=== PATIENT | male | born 1945 | race Caucasian/White ===

== ENCOUNTER 2016-07-01 23:04 | Inpatient (IN) ==
[2016-07-01] MEDS ORDERED: SODIUM CHLORIDE 0.9% 1,000 ML IV STA (23:36)
[2016-07-01] MEDS ORDERED: HYDROmorphone 2 MG/1 ML VIAL IV STA (23:37)
[2016-07-01] MEDS ORDERED: HYDROmorphone 2 MG/1 ML VIAL ONE (23:46)
[2016-07-02 00:03] LABS: Basophils # 0.1 10*3/uL (0.0-0.2); Basophils % 0.4 % (0.0-0.8); Eosinophils # 0.1 10*3/uL (0.0-0.87); Eosinophils % 0.7 % (0.00-10.9); Hematocrit 30.2 VOL% (42.0-52.0); Hemoglobin 9.9 GM/DL (14.0-18.0); Immature Granulocytes % 0.9 %; Immature Granulocytes Absolute 0.12 #; Lymphocytes % 7.6 % (21.2-54.2); Mean Corpuscular HGB Conc 32.8 GM/DL (32-36); Mean Corpuscular Hemoglobin 30 PG (27-34); Mean Corpuscular Volume 90.4 FL (87-102); Mean Platelet Volume 9.1 FL (9.6-12.0); Monocytes # 1.3 10*3/uL (0.11-0.8); Monocytes % 9.2 % (1.7-12.7); Neutrophils # 11.1 10*3/uL (1.4-7.4); Neutrophils % 81.2 % (38.7-73.9); Platelet Count 305 T/CUMM (130-400); Red Blood Count 3.34 MC/CUMM (3.8-5.5); Red Cell Distribution Width 13.7 % (9.3-17.3); White Blood Count 13.6 T/CUMM (4-12)
[2016-07-02 00:20] LABS: PT Patient Result 10.9 SECS
[2016-07-02 01:04] LABS: Albumin 3.5 G/DL (3.4-5.0); Bilirubin,Total 0.4 MG/DL (0.2-1.0); Calcium 9.7 MG/DL (8.5-10.1); Osmolality,Calculated 298.1 MOS/KG (273-304); Potassium 4.5 MMOL/L (3.5-5.1); Total Protein 7.1 G/DL (6.4-8.3)
[2016-07-02 01:20] LABS: Sedimentation Rate-Westergren 119 MM/HR (0-20)
[2016-07-02] MEDS ORDERED: ACETAMINOPHEN 500 MG TABLET PO STA ×2 (01:30→01:33)
[2016-07-02] MEDS ORDERED: ACETAMINOPHEN 500 MG TABLET ONE (01:31)
[2016-07-02 01:32] LABS: Apearance,Urine Slightly Hazy (Clear); Bilirubin,Urine Negative (Negative); Blood, Urine Small mg/dL (Negative); Glucose,Urine (UA) Negative (Negative); Granular Casts,Urine 3 /LPF (0-1); Hyaline Casts,Urine 1 /LPF (0-3); Ketones,Urine Negative (Negative); Mucus,Urine Occasional /LPF (Occasional); Nitrite,Urine Negative (Negative); Protein,Urine 30 MG/DL; RBC,Urine 1 /HPF (0-4); Squamous Epithelial Cell,Urine Occasional /HPF (0-10); Urine Color Yellow (Yellow); Urine Specific Gravity 1.012 (1.001-1.035); Urine Urobilinogen < 2.0 EU/DL (0.2-1.0); WBC,Urine 16 /HPF (0-6)
[2016-07-02] MEDS ORDERED: ACETAMINOPHEN 325 MG TABLET PO PRN (01:59)
[2016-07-02] MEDS ORDERED: ZALEPLON 5 MG CAPSULE PO PRN (01:59)
[2016-07-02] MEDS ORDERED: ONDANSETRON 4 MG/2 ML VIAL IV PRN (01:59)
[2016-07-02] MEDS ORDERED: DEXTROSE 50% 25 GM/50 ML VIAL IV PRN (02:25)
[2016-07-02] MEDS ORDERED: GLUCAGON 1 MG VIAL IM PRN (02:25)
[2016-07-02] MEDS ORDERED: HYDROmorphone 2 MG/1 ML VIAL IV PRN ×2 (02:27→14:59)
--- NOTE | 2016-07-02 02:34 | Hospitalist History & Physical ---
Assessment and Plan (1) History of gout Status: Acute Current Visit: Yes (2) Increase in transaminases Status: Acute Current Visit: Yes (3) Fever of unknown origin Status: Acute Current Visit: Yes (4) Hypertension Status: Chronic Current Visit: No (5) Dyslipidemia Status: Chronic Current Visit: No (6) Diabetes Status: Chronic Assessment and plan: Our plan for this patient will be admission to our service. He has a fever of unknown origin we will place him on broad coverage antibiotics. He is creatinine is slightly bumped from previous values currently it is 5.1 and previously it was 4.6. If it increases much more will need to get Dr. Bridges involved. Cultures have been drawn urine has been cultured.. X-rays will be performed of his ankle and bilateral shoulders. Narcotics will be provided for pain relief. Will check uric acid level. Reevaluate patient in the morning and change plans as needed Current Visit: No (7) CKD (chronic kidney disease) stage 4, GFR 15-29 ml/min Status: Chronic Current Visit: No (8) CAD (coronary artery disease) Status: Chronic Current Visit: No History of Present Illness Chief complaint: Joint pain and fever History of present illness: Mr. Shaw is a 71 year old male with past medical history significant for chronic kidney disease basal cell cancer of the ear, prostate problems, diabetes , and coronary artery disease who had a left heart catheter stents placed on May 28. He has been doing okay since then. He had some pain in his foot and he went to an outside hospital and told it was a gout flare. He reports he previously been on allopurinol in the past. He was transferred over to colchicine but it was stopped secondary to his chronic kidney disease. He sees Dr. Bridges with nephrology. He reports he has been febrile. He has had pains in his ankles and his bilateral shoulders. Says the pain is very sharp. Patient also request reports of a cough. His been nonproductive. He has no pain with urination. He has been on oral chemo for about a month and a half. I was consulted to admit him. He is febrile and a little tachycardic. Home Medications Medication Instructions Recorded Confirmed Type Aspirin [Ecotrin] 81 mg PO DAILY 11/15/14 07/01/16 History Diltiazem Cd Cap [Cardizem CD] 120 mg PO DAILY 11/15/14 07/01/16 History Gabapentin Cap/Tab [Neurontin 600 mg PO BID 11/15/14 07/01/16 History Cap/Tab] Magnesium Oxide 400 mg PO BEDTIME 11/15/14 07/01/16 History Metoprolol Tartrate 12.5 mg PO BID 11/15/14 07/01/16 History Pantoprazole Tab [Protonix Tab] 40 mg PO DAILY 11/15/14 07/01/16 History Furosemide 40 mg PO DAILY 01/04/16 07/01/16 History Insulin Detemir [Levemir] 30 unit SUBCUT AC SUPPER 01/04/16 07/01/16 History glipiZIDE [Glipizide] 5 mg PO DAILY 01/04/16 07/01/16 History Vismodegib [Erivedge] 150 mg PO DAILY 05/28/16 07/01/16 History Clopidogrel [Plavix] 75 mg PO DAILY 07/01/16 07/01/16 History Pravastatin Sodium 20 mg PO BEDTIME 07/01/16 07/01/16 History Allergies Allergy/AdvReac Type Severity Reaction Status Date / Time No Known Allergies Allergy Verified 07/01/16 23:11 Medical,Surgical,& Family Hx - Medical History Cardio: History of: Cardiac Dysrhythmia (A-Fib), Hypertension, 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 Bridges-Keeping a watch on Elevated Creat) Genitourinary: History of: Prostate Problems (BPH) Gastrointestinal: No history of: Polyps Musculoskeletal: History of: Musculoskeletal Problems (arthritis) Other: History of: Cancer (Skin), Skin Problems (Hx Skin Grafts) No history of: Anesthesia Reactions - Surgical History Neurologic Surgeries: Surgical HX of: Cerebral Hemorrhage (Feb 2012) HEENT Surgeries: Surgical HX of: Eye Surgery (COS/COD) Patient denies: Tonsilectomy & Adenoidectomy Abdominal Surgeries: Surgical HX of: Cholecystectomy Patient denies: Colonoscopy Reproductive Surgeries: Surgical HX of;: Genitourinary Surgery (Microwave Prostate; 01/13/16 Sched for Cysto with Laser Ablation of Prostat) - Family History Family History: Reports;: Family Diabetes, Family Heart Disease - Social History Smoking Status: Never smoker Frequency of Alcohol Use: None Type of Drug Use: None 12 point system: reviewed and no additional remarkable complaints except as stated Exam - Constitutional Vitals: - General General appearance: alert, in no apparent distress - Head Head exam: Present: atraumatic, normocephalic - Eye Eye exam: Present: PERRL, EOMI - ENT ENT exam: Present: mucous membranes moist. Absent: mucous membranes dry - Neck Neck exam: Present: full ROM. Absent: tenderness - Chest Chest inspection: Present: symmetric chest wall rise. Absent: tenderness - Respiratory Respiratory exam: Present: normal lung sounds bilaterally. Absent: respiratory distress - Cardiovascular Cardiovascular exam: Present: normal rhythm, tachycardia, normal heart sounds - Abdominal Exam Abdominal exam: Present: soft. Absent: tenderness - Extremities Exam Extremities exam: Present: full ROM, tenderness noted on physical exam of the left ankle bilateral shoulders and left elbow. - Back Exam Back exam: Present: full ROM. Absent: tenderness - Neurological Exam Neurological exam: Present: alert, oriented X3, CN II-XII intact. Absent: motor sensory deficit - Psychiatric Psychiatric exam: Present: normal affect, normal mood - Skin Skin exam: Present: warm, dry General appearance: over weight Results - Labs CBC & BMP: 07/01/16 23:49 07/01/16 23:49
[2016-07-02] MEDS: ENOXAPARIN 30 MG/0.3 ML SYRINGE SUBCUT SCH (03:15)
--- NOTE | 2016-07-02 03:30 | Emergency Department Note ---
I, Nathalia Newsome, am scribing for, and in the presence of, Kaylah Conway MD 23:46. IMan Leanne, MD, personally performed the services described in this documentation, ascribed by Nathalia Newsome in my presence, and it is both accurate and complete . Arrival - Arrival Chief Complaint: Extremity Problem Stated Complaint: upper and lower ext pain ED Nursing Triage Note: Patient to room via ems. Patient states that he is hurting all over. Patient states it is worse if you touch him. Patient had fentyl 100mcg per ems. Patient was told he had gout in his left foot last week. Patient is on oral chemo at this time. Mode of Arrival: Stretcher Limitations: No Limitations Source: Patient Time Seen by Provider: 07/01/16 23:36 - History of Present Illness HPI Narrative: Pt is a 71 y/o male that came to the ED via EMS with c/o hurting all over that has been going on for 3 or 4 days but is worse tonight. Pt states he has pain in his left ankle, end of his right greater toe, bilateral shoulders, bilateral knees, and left elbow that are all tender to touch and sore. Pt reports another hospital 2 nights ago told him his sxs were gout but he denies being previously diagnosed with gout. He states he has had this pain before in all the same places but denies it ever being this bad. Pt reports he has been taking Rx pain medication for sxs. Pt states he had a NM and stents placed 2 or 4 weeks ago. Pt has associated sxs of fever in his feet but denies SOB, CP, or CALLE. Pt has a PMHx of IDDM. No other complaints/pain in ED. Allergies/Adverse Reactions: Allergies Allergy/AdvReac Type Severity Reaction Status Date / Time No Known Allergies Allergy Verified 07/01/16 23:11 Home Medications: Home Medications Medication Instructions Recorded Confirmed Type Aspirin [Ecotrin] 81 mg PO DAILY 11/15/14 07/01/16 History Diltiazem Cd Cap [Cardizem CD] 120 mg PO DAILY 11/15/14 07/01/16 History Gabapentin Cap/Tab [Neurontin 600 mg PO BID 11/15/14 07/01/16 History Cap/Tab] Magnesium Oxide 400 mg PO BEDTIME 11/15/14 07/01/16 History Metoprolol Tartrate 12.5 mg PO BID 11/15/14 07/01/16 History Pantoprazole Tab [Protonix Tab] 40 mg PO DAILY 11/15/14 07/01/16 History Furosemide 40 mg PO DAILY 01/04/16 07/01/16 History Insulin Detemir [Levemir] 30 unit SUBCUT AC SUPPER 01/04/16 07/01/16 History glipiZIDE [Glipizide] 5 mg PO DAILY 01/04/16 07/01/16 History Vismodegib [Erivedge] 150 mg PO DAILY 05/28/16 07/01/16 History Clopidogrel [Plavix] 75 mg PO DAILY 07/01/16 07/01/16 History Pravastatin Sodium 20 mg PO BEDTIME 07/01/16 07/01/16 History Review of System - Review of System 12 point system: reviewed and no additional remarkable complaints except as stated - Review of System Constitutional: Absent: chills, fever Respiratory: Absent: cough Cardiovascular: Absent: chest pain Gastrointestinal: Absent: abdominal pain, nausea, vomiting Musculoskeletal: Present: other (pain in bilateral shoulders, left elbow, bilateral knees, left ankle, and the end of the right great toe with fever in his feet) Skin: Absent: rash Neurological: Absent: headache Psychiatric: Absent: anxiety Medical,Surgical,& Family Hx - Medical History Cardio: History of: Cardiac Dysrhythmia (A-Fib), Hypertension, 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 Bridges-Keeping a watch on Elevated Creat) Genitourinary: History of: Prostate Problems (BPH) Gastrointestinal: No history of: Polyps Musculoskeletal: History of: Musculoskeletal Problems (arthritis) Other: History of: Cancer (Skin), Skin Problems (Hx Skin Grafts) No history of: Anesthesia Reactions - Surgical History Neurologic Surgeries: Surgical HX of: Cerebral Hemorrhage (Feb 2012) HEENT Surgeries: Surgical HX of: Eye Surgery (COS/COD) Patient denies: Tonsilectomy & Adenoidectomy Abdominal Surgeries: Surgical HX of: Cholecystectomy Patient denies: Colonoscopy Reproductive Surgeries: Surgical HX of;: Genitourinary Surgery (Microwave Prostate; 01/13/16 Sched for Cysto with Laser Ablation of Prostat) - Family History Family History: Reports;: Family Diabetes, Family Heart Disease - Social History Smoking Status: Never smoker Frequency of Alcohol Use: None Type of Drug Use: None Exam Vital Signs: Vital Signs Temperature 99.8 F H 07/02/16 02:37 Pulse Rate 113 H 07/02/16 02:37 Respiratory Rate 25 H 07/02/16 02:37 Blood Pressure 126/67 07/02/16 02:37 O2 Sat by Pulse Oximetry 97 07/02/16 02:37 - General General appearance: alert, in no apparent distress - Head Head exam: Present: atraumatic, normocephalic - Eye Eye exam: Present: PERRL, EOMI - ENT ENT exam: Present: mucous membranes moist. Absent: mucous membranes dry - Neck Neck exam: Present: full ROM. Absent: tenderness - Chest Chest inspection: Present: symmetric chest wall rise. Absent: tenderness - Respiratory Respiratory exam: Present: normal lung sounds bilaterally. Absent: respiratory distress - Cardiovascular Cardiovascular exam: Present: normal rhythm, tachycardia, normal heart sounds - Abdominal Exam Abdominal exam: Present: soft. Absent: tenderness - Extremities Exam Extremities exam: Present: full ROM, tenderness (tenderness to the left ankle, right great toe, bilateral shoulder, left elbow, and right knee) - Back Exam Back exam: Present: full ROM. Absent: tenderness - Neurological Exam Neurological exam: Present: alert, oriented X3, CN II-XII intact. Absent: motor sensory deficit - Psychiatric Psychiatric exam: Present: normal affect, normal mood - Skin Skin exam: Present: warm, dry Course Course Narrative: pt tachy 118 on arrival and complaining of several areas of joint pain. was told it was gout. Pt had stent placed about 1 month ago. concern for bactermia , even from possible heart source given recent stent placement. pt admitted to hospitalist. Results - Labs CBC & BMP: 07/01/16 23:49 07/01/16 23:49 Lab Results: I have reviewed the patients labs Labs: Laboratory Tests 07/01/16 23:49 WBC 13.6 H RBC 3.34 L Hgb 9.9 L Hct 30.2 L MPV 9.1 L Neut % (Auto) 81.2 H Lymph % (Auto) 7.6 L Neut # (Auto) 11.1 H Lymph # (Auto) 1.0 L Van [place]andt # (Auto) 1.3 H Laboratory Tests 07/01/16 23:49 INR 1.0 PT Patient/Control Mix 10.9 Laboratory Tests 07/01/16 07/01/16 07/01/16 00:22 23:49 23:49 ESR Westergren 119 H Sodium 135 L Chloride 96 L Anion Gap 18.5 H BUN 88 H Creatinine 5.10 H Glucose 129 H AST 43 H ALT 82 H Alkaline Phosphatase 139 H C-Reactive Protein 18.40 H Globulin 3.6 H Albumin/Globulin Ratio 0.9 L Urine Color Yellow Urine Appearance Slightly hazy Urine pH 5.0 Ur Specific Bazine 1.012 Urine Protein 30 Urine Glucose (UA) Negative Urine Ketones Negative Urine Blood Small Urine Nitrate Negative Urine Bilirubin Negative Urine Urobilinogen < 2.0 H Urine Leukocytes Small H Urine RBC 1 Urine WBC 16 Ur Squamous Epith Cells Occasional Hyaline Casts 1 Granular Casts 3 Urine Mucus Occasional Laboratory Tests 07/02/16 00:34 Troponin I < 0.015 - EKG EKG results: interpreted by ERMD EKG shows: tachycardia - Diagnostic Findings Procedure: Chest x-ray: pending (no change from prior, no infiltrate. ) Disposition Clinical Impression: Polyarthralgia, Fever, Tachycardia, Hx of heart artery stent Case discussed with: patient Disposition: Still a Patient Condition: Guarded
[2016-07-02] MEDS ORDERED: VANCOMYCIN INJ 1,250 MG in SODIUM CHLORIDE 0.9% 250 ML IV ONE (04:00)
[2016-07-02] MEDS: PIPERACILLIN/TAZOBACTAM 3,375 MG in SODIUM CHLORIDE 0.9% 100 ML IV SCH ×2 (06:31→18:04)
--- NOTE | 2016-07-02 07:27 | XRay Report ---
XR chest 1V portable Indication: SOB/fever Comparison: Chest x-ray dated May 2016 Technique: Single frontal view of the chest Findings: Cardiomediastinal silhouette is stable in configuration. Heart remains mildly prominent. Question small left pleural fluid. Osseous and surrounding soft tissue structures appear grossly unchanged. IMPRESSION: Continued mild cardiomegaly without harman pulmonary edema. Question small left pleural fluid. PROCEDURE INTERPRETED AT [facility] DEPARTMENT OF RADIOLOGY Final Report Signed by: Dr Angelo Crane
[2016-07-02 07:47] LABS: Basophils % 0.3 % (0.0-0.8); Eosinophils # 0.2 10*3/uL (0.0-0.87); Eosinophils % 1.8 % (0.00-10.9); Hematocrit 26.9 VOL% (42.0-52.0); Hemoglobin 8.7 GM/DL (14.0-18.0); Immature Granulocytes % 0.8 %; Immature Granulocytes Absolute 0.08 #; Lymphocytes # 2.1 10*3/uL (1.4-4.0); Mean Corpuscular HGB Conc 32.3 GM/DL (32-36); Mean Corpuscular Hemoglobin 29 PG (27-34); Mean Corpuscular Volume 90.9 FL (87-102); Mean Platelet Volume 9.2 FL (9.6-12.0); Monocytes # 1.2 10*3/uL (0.11-0.8); Monocytes % 12.5 % (1.7-12.7); Neutrophils # 6.3 10*3/uL (1.4-7.4); Neutrophils % 63.6 % (38.7-73.9); Platelet Count 273 T/CUMM (130-400); Red Blood Count 2.96 MC/CUMM (3.8-5.5); Red Cell Distribution Width 13.8 % (9.3-17.3)
[2016-07-02 08:17] LABS: Bilirubin,Total 0.7 MG/DL (0.2-1.0); Calcium 8.9 MG/DL (8.5-10.1); Osmolality,Calculated 302.4 MOS/KG (273-304); Potassium 4.2 MMOL/L (3.5-5.1); Total Protein 6.1 G/DL (6.4-8.3)
[2016-07-02] MEDS: PANTOPRAZOLE 40 MG TABLET PO SCH (08:46)
[2016-07-02] MEDS: GABAPENTIN 300 MG CAPSULE PO SCH ×2 (08:46→20:15)
[2016-07-02] MEDS: FUROSEMIDE 40 MG TABLET PO SCH (08:47)
[2016-07-02] MEDS: CLOPIDOGREL 75 MG TABLET PO SCH (08:47)
[2016-07-02] MEDS: METOPROLOL TARTRATE 25 MG TABLET PO SCH ×2 (08:47→20:14)
[2016-07-02] MEDS: DILTIAZEM CD 120 MG CAPSULE PO SCH (08:47)
[2016-07-02] MEDS: ASPIRIN EC 81 MG TABLET PO SCH (08:47)
[2016-07-02] MEDS: INSULIN REGULAR 100 UNIT/ML SUBCUT SCH ×4 (08:47→20:49)
--- NOTE | 2016-07-02 08:50 | EKG Report ---
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
[2016-07-02] MEDS ORDERED: VANCOMYCIN INJ 1,500 MG in SODIUM CHLORIDE 0.9% 500 ML IV PRN (09:17)
--- NOTE | 2016-07-02 10:04 | XRay Report ---
Exam: XR ankle 2V LT Date: 07/02/2016 7:00 AM Comparison: None Indication: Left ankle pain Technique:[AP and lateral left ankle] Findings: Soft tissue swelling. Minimal joint space narrowing. Calcaneal osteophytes. No acute fracture or dislocation. Impression: Soft tissue swelling with minimal DJD. No acute fracture or dislocation. Calcaneal osteophytes. PROCEDURE INTERPRETED AT [facility] DEPARTMENT OF RADIOLOGY Final Report Signed by: Dr. Candida Whittaker
--- NOTE | 2016-07-02 10:05 | XRay Report ---
Exam: XR shoulder 2V BI Date: 07/02/2016 7:00 AM Comparison: None Indication: Bilateral shoulder pain Technique:[Two-view bilateral shoulder] Findings: Bilateral AC joint arthropathy with subacromial osteophytes. No fracture or dislocation. Impression: Bilateral AC joint arthropathy with subacromial osteophytes. No acute fracture or dislocation. PROCEDURE INTERPRETED AT [facility] DEPARTMENT OF RADIOLOGY Final Report Signed by: Dr. Candida Whittaker
[2016-07-02] MEDS ORDERED: LIDOCAINE 1% 50 ML VIAL MISC INJ ONE (11:06)
--- NOTE | 2016-07-02 11:28 | Orthopedic Consult Note ---
History of Present Illness Chief complaint: Bilateral shoulder pain left ankle pain left elbow pain History of present illness: Mr. Shaw is a 71 year old male hospitalized with fever pain in several joints. Been having pain for couple weeks has been worsening. He has been treated for gout but was unable tolerate some of the meds that his kidney issues. He notes no new injury. He had this happen in the distant past and improved with medications. Has pain in the right shoulder with movement or coughing. Pain left ankle with palpation. Home Medications Medication Instructions Recorded Confirmed Type Aspirin [Ecotrin] 81 mg PO DAILY 11/15/14 07/01/16 History Diltiazem Cd Cap [Cardizem CD] 120 mg PO DAILY 11/15/14 07/01/16 History Gabapentin Cap/Tab [Neurontin 600 mg PO BID 11/15/14 07/01/16 History Cap/Tab] Magnesium Oxide 400 mg PO BEDTIME 11/15/14 07/01/16 History Metoprolol Tartrate 12.5 mg PO BID 11/15/14 07/01/16 History Pantoprazole Tab [Protonix Tab] 40 mg PO DAILY 11/15/14 07/01/16 History Furosemide 40 mg PO DAILY 01/04/16 07/01/16 History Insulin Detemir [Levemir] 30 unit SUBCUT AC SUPPER 01/04/16 07/01/16 History glipiZIDE [Glipizide] 5 mg PO DAILY 01/04/16 07/01/16 History Vismodegib [Erivedge] 150 mg PO DAILY 05/28/16 07/01/16 History Clopidogrel [Plavix] 75 mg PO DAILY 07/01/16 07/01/16 History Pravastatin Sodium 20 mg PO BEDTIME 07/01/16 07/01/16 History Allergies Allergy/AdvReac Type Severity Reaction Status Date / Time No Known Allergies Allergy Verified 07/01/16 23:11 12 point system: reviewed and no additional remarkable complaints except as stated Medical,Surgical,& Family Hx - Medical History Cardio: History of: Cardiac Dysrhythmia (A-Fib), Hypertension, 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 Bridges-Keeping a watch on Elevated Creat) Genitourinary: History of: Prostate Problems (BPH) Gastrointestinal: History of: GERD No history of: Polyps Musculoskeletal: History of: Musculoskeletal Problems (arthritis) Other: History of: Cancer (Skin), Skin Problems (Hx Skin Grafts) No history of: Anesthesia Reactions - Surgical History Neurologic Surgeries: Surgical HX of: Cerebral Hemorrhage (Feb 2012) HEENT Surgeries: Surgical HX of: Eye Surgery (COS/COD) Patient denies: Tonsilectomy & Adenoidectomy Abdominal Surgeries: Surgical HX of: Cholecystectomy Patient denies: Colonoscopy Reproductive Surgeries: Surgical HX of;: Genitourinary Surgery (Microwave Prostate; 01/13/16 Sched for Cysto with Laser Ablation of Prostat) - Family History Family History: Reports;: Family Diabetes, Family Heart Disease - Social History Smoking Status: Never smoker Frequency of Alcohol Use: None Type of Drug Use: None Exam - Constitutional Vitals: Period Temp Pulse Resp BP Sys/Villalobos Pulse Ox Last 24 Hr 97.6 F-99.8 F 84-113 18-25 126-138/57-71 92-97 Exam: Bilateral extremity: Has pain with active and passive range of motion of the shoulders. No erythema warmth or swelling is noted. He is tender to palpation about the lateral aspect of the elbow. There is no erythema no warmth. Particular there is no swelling of the olecranon bursa. Examination left ankle show some erythema and swelling particularly laterally. No fluctuance is noted today. Has pain with palpation anywhere around the ankle or foot. Slight warmth laterally. Results - Labs CBC & BMP: 07/02/16 07:18 07/02/16 07:18 - Diagnostic Findings Procedure: X-ray: image reviewed by me (Shoulder x-rays show some calcific tendinitis bilaterally. No fractures are noted. Left ankle x-ray shows soft tissue swelling) Assessment and Plan (1) Polyarthralgia Status: Acute Assessment and plan: His uric acid is significantly elevated. Sed rate and CRP are also elevated. May have a gouty flare with underlying cellulitis. Will attempt to aspirate left ankle today to see if we can get any fluid to send to the lab. We will allow his got to be treated for the next day or so and then repeat exam. If his symptoms do not improve, MRI may be beneficial to see if there is any fluid collection. Procedure: Skin overlying the anterior medial aspect ankles and SI joints are lidocaine. Approximately 1 cc of bloody fluids and aspirated. No purulent material was noted. The lateral aspect of the ankle was not aspirated secondary to the overlying cellulitis. Patient procedure well without any complications. There was not enough fluid aspirated to be sent to lab for evaluation. We will follow him clinically. Current Visit: Yes
--- NOTE | 2016-07-02 13:05 | Event Note ---
Patient seen and examined by me later this morning. Uric acid is elevated. Tenderness over most of his body especially his right ankle and elbow. Ortho consulted for possible tap. They were able to draw fluid from his ankle. F/u results. He has significant CKD, so will not use NSAIDs or colchicine. Will treat with prednisone 60mg Daily.
[2016-07-02] MEDS: predniSONE 20 MG TABLET PO SCH (14:06)
[2016-07-02] MEDS: MAGNESIUM OXIDE 400 MG TABLET PO SCH (20:15)
[2016-07-02] MEDS: PRAVASTATIN 20 MG TABLET PO SCH (20:15)
[2016-07-03] MEDS: ENOXAPARIN 30 MG/0.3 ML SYRINGE SUBCUT SCH (01:54)
[2016-07-03] MEDS: PIPERACILLIN/TAZOBACTAM 3,375 MG in SODIUM CHLORIDE 0.9% 100 ML IV SCH ×2 (05:30→17:54)
[2016-07-03 06:19] LABS: Basophils % 0.1 % (0.0-0.8); Hematocrit 26.9 VOL% (42.0-52.0); Hemoglobin 8.5 GM/DL (14.0-18.0); Immature Granulocytes % 1.5 %; Immature Granulocytes Absolute 0.13 #; Lymphocytes # 0.9 10*3/uL (1.4-4.0); Lymphocytes % 10.6 % (21.2-54.2); Mean Corpuscular HGB Conc 31.6 GM/DL (32-36); Mean Corpuscular Hemoglobin 29 PG (27-34); Mean Corpuscular Volume 93.1 FL (87-102); Mean Platelet Volume 8.9 FL (9.6-12.0); Monocytes # 0.6 10*3/uL (0.11-0.8); Monocytes % 6.9 % (1.7-12.7); Neutrophils % 80.9 % (38.7-73.9); Platelet Count 303 T/CUMM (130-400); Red Blood Count 2.89 MC/CUMM (3.8-5.5); Red Cell Distribution Width 13.7 % (9.3-17.3); White Blood Count 8.7 T/CUMM (4-12)
[2016-07-03 06:43] LABS: Calcium 9.1 MG/DL (8.5-10.1); Magnesium 3.7 MG/DL (1.8-2.4); Osmolality,Calculated 307.5 MOS/KG (273-304); Potassium 4.7 MMOL/L (3.5-5.1)
--- NOTE | 2016-07-03 07:07 | Orthopedic Progress Note ---
Assessment and Plan (1) Polyarthralgia Status: Acute Assessment and plan: With his significant clinical improvement after administration of steroids, think this is a gout issue and not an infection issue. Will place a pressure dressing over the left ankle to allow his blood to clot and stop the issues there. We will follow-up later today to make sure that the aspiration site looks okay. It is okay to be discharged home from an orthopedic standpoint, no orthopedic follow-up is necessary. Current Visit: Yes Orthopedics - Subjective Interval history: Patient has had much less pain overnight. He has had some bleeding from his aspiration site on the left ankle. On exam today is a slight ooze of serosanguineous fluid from his anterior ankle. Erythema around the ankle is significantly improved. Tenderness to palpation around the ankle is also significantly improved. He can raise both extremities above shoulder level actively and passively. White count remains normal He is afebrile overnight Exam - Constitutional Vitals: Period Temp Pulse Resp BP Sys/Villalobos Pulse Ox Last 24 Hr 97 F-99.6 F 69-84 18-20 126-151/57-70 95-99 Results - Labs CBC & BMP: 07/03/16 06:00 07/03/16 06:00
[2016-07-03] MEDS: ASPIRIN EC 81 MG TABLET PO SCH (08:10)
[2016-07-03] MEDS: PANTOPRAZOLE 40 MG TABLET PO SCH (08:10)
[2016-07-03] MEDS: METOPROLOL TARTRATE 25 MG TABLET PO SCH ×2 (08:10→20:57)
[2016-07-03] MEDS: DILTIAZEM CD 120 MG CAPSULE PO SCH (08:10)
[2016-07-03] MEDS: predniSONE 20 MG TABLET PO SCH (08:10)
[2016-07-03] MEDS: CLOPIDOGREL 75 MG TABLET PO SCH (08:10)
[2016-07-03] MEDS: GABAPENTIN 300 MG CAPSULE PO SCH ×2 (08:10→20:58)
[2016-07-03] MEDS: FUROSEMIDE 40 MG TABLET PO SCH (08:10)
[2016-07-03] MEDS: INSULIN REGULAR 100 UNIT/ML SUBCUT SCH ×4 (08:11→20:13)
[2016-07-03] MEDS ORDERED: VANCOMYCIN INJ 1,500 MG in SODIUM CHLORIDE 0.9% 500 ML IV ONE (11:00)
--- NOTE | 2016-07-03 12:28 | Hospitalist Progress Note ---
Assessment and Plan (1) Polyarthralgia Status: Acute Assessment and plan: His shoulder pain has improved. He is able to reach his head with both hands. His left ankle has been aspirated which was complicated by some bleeding but this has stopped. His uric acid is significantly elevated. Sed rate and CRP are also elevated. May have a gouty flare with underlying cellulitis. Plan Continue IV antibiotics, pain meds and follow result of the tests. Continue applying pressure to the ankle follow orthopedics recommendations Current Visit: Yes (2) New onset type 2 diabetes mellitus Status: Acute Assessment and plan: will start Lantus 10units qhs,follow response and get HbA1c level. Current Visit: No (3) Renal failure (ARF), acute on chronic Status: Acute Assessment and plan: slowly improving. BMP in am Current Visit: No (4) Hypertension Status: Chronic Assessment and plan: stable Current Visit: No (5) Dyslipidemia Status: Chronic Assessment and plan: continue on statins Current Visit: No (6) Hx of heart artery stent Status: Acute Assessment and plan: stable Current Visit: Yes (7) PAF (paroxysmal atrial fibrillation) Status: Chronic Assessment and plan: Heart rate is under control Current Visit: No (8) History of skin cancer Status: Acute Assessment and plan: consider restarting Erivedge on dc Current Visit: Yes Hospitalist: Subjective Interval history: Patient seen this am. Left ankle bleed has stopped. He feels good and states his chest tenderness has improved as well. Exam - Constitutional Vitals: Period Temp Pulse Resp BP Sys/Villalobos Pulse Ox Last 24 Hr 97 F-98.8 F 67-81 18-20 125-154/62-70 95-99 General appearance: no acute distress - Head Head exam: Present: normal inspection - Respiratory Respiratory exam: Present: clear to auscultation bilaterally - Cardiovascular Cardiovascular exam: Present: regular rate and rhythm - GI/Abdominal GI/Abdominal exam: Present: normal bowel sounds - Extremities Exam Extremities exam: Present: other (left ankle bandaged with pressure, dressings look clean) Results - Labs CBC & BMP: 07/03/16 06:00 07/03/16 06:00 Lab Results: I have reviewed the past 24 hour labs
[2016-07-03] MEDS: MAGNESIUM OXIDE 400 MG TABLET PO SCH (20:57)
[2016-07-03] MEDS: PRAVASTATIN 20 MG TABLET PO SCH (20:58)
[2016-07-03] MEDS ORDERED: INSULIN GLARGINE 100 UNIT/ML SUBCUT SCH (21:00)
[2016-07-04] MEDS: ENOXAPARIN 30 MG/0.3 ML SYRINGE SUBCUT SCH ×2 (01:56→21:23)
[2016-07-04] MEDS: PIPERACILLIN/TAZOBACTAM 3,375 MG in SODIUM CHLORIDE 0.9% 100 ML IV SCH ×2 (05:41→18:02)
[2016-07-04 05:54] LABS: Basophils % 0.2 % (0.0-0.8); Hematocrit 27.8 VOL% (42.0-52.0); Hemoglobin 9.1 GM/DL (14.0-18.0); Immature Granulocytes % 1.8 %; Immature Granulocytes Absolute 0.24 #; Lymphocytes # 1.3 10*3/uL (1.4-4.0); Lymphocytes % 9.8 % (21.2-54.2); Mean Corpuscular HGB Conc 32.7 GM/DL (32-36); Mean Corpuscular Hemoglobin 30 PG (27-34); Mean Corpuscular Volume 90.3 FL (87-102); Mean Platelet Volume 9.3 FL (9.6-12.0); Monocytes # 0.8 10*3/uL (0.11-0.8); Monocytes % 6.2 % (1.7-12.7); Neutrophils # 10.9 10*3/uL (1.4-7.4); Platelet Count 361 T/CUMM (130-400); Red Blood Count 3.08 MC/CUMM (3.8-5.5); Red Cell Distribution Width 13.7 % (9.3-17.3); White Blood Count 13.2 T/CUMM (4-12)
[2016-07-04 06:29] LABS: Potassium 4.4 MMOL/L (3.5-5.1)
[2016-07-04 06:33] LABS: Calcium 8.9 MG/DL (8.5-10.1); Magnesium 3.6 MG/DL (1.8-2.4); Potassium 4.5 MMOL/L (3.5-5.1)
[2016-07-04] MEDS: GABAPENTIN 300 MG CAPSULE PO SCH ×2 (08:51→21:16)
[2016-07-04] MEDS: ERIVEDGE 150 MG PO SCH ×2 (08:51)
[2016-07-04] MEDS: predniSONE 20 MG TABLET PO SCH (08:52)
[2016-07-04] MEDS: ASPIRIN EC 81 MG TABLET PO SCH (08:52)
[2016-07-04] MEDS: CLOPIDOGREL 75 MG TABLET PO SCH (08:52)
[2016-07-04] MEDS: FUROSEMIDE 40 MG TABLET PO SCH (08:52)
[2016-07-04] MEDS: PANTOPRAZOLE 40 MG TABLET PO SCH (08:52)
[2016-07-04] MEDS: DILTIAZEM CD 120 MG CAPSULE PO SCH (08:52)
[2016-07-04] MEDS: METOPROLOL TARTRATE 25 MG TABLET PO SCH ×2 (08:54→21:16)
[2016-07-04] MEDS: INSULIN REGULAR 100 UNIT/ML SUBCUT SCH ×4 (08:56→21:17)
--- NOTE | 2016-07-04 14:49 | Hospitalist Progress Note ---
Assessment and Plan (1) Polyarthralgia Status: Acute Assessment and plan: His shoulder pain has improved. He is able to reach his head with both hands. His left ankle has been aspirated which was complicated by some bleeding but this has stopped. His uric acid is significantly elevated. Sed rate and CRP are also elevated. May have a gouty flare with underlying cellulitis. Plan Continue IV antibiotics, pain meds and follow result of the tests. Will start Colchicine, cannot start Allopurinol due to RF Continue applying pressure to the ankle follow orthopedics recommendations Current Visit: Yes (2) New onset type 2 diabetes mellitus Status: Acute Assessment and plan: will increase Lantus to 15units qhs,follow response, HbA1c level -6.9. Current Visit: No (3) Renal failure (ARF), acute on chronic Status: Acute Assessment and plan: slowly improving. BMP in am Current Visit: No (4) Hypertension Status: Chronic Assessment and plan: stable Current Visit: No (5) Dyslipidemia Status: Chronic Assessment and plan: continue on statins Current Visit: No (6) Hx of heart artery stent Status: Acute Assessment and plan: stable Current Visit: Yes (7) PAF (paroxysmal atrial fibrillation) Status: Chronic Assessment and plan: Heart rate is under control Current Visit: No (8) History of skin cancer Status: Acute Assessment and plan: consider restarting Erivedge on dc Current Visit: Yes Hospitalist: Subjective Interval history: Patient seen and has no new complaints. Exam - Constitutional Vitals: Period Temp Pulse Resp BP Sys/Villalobos Pulse Ox Last 24 Hr 97.5 F-98.1 F 58-71 16-20 109-145/54-66 93-98 General appearance: no acute distress - Eye Eye exam: Present: EOMI - Respiratory Respiratory exam: Present: clear to auscultation bilaterally - Cardiovascular Cardiovascular exam: Present: regular rate and rhythm - GI/Abdominal GI/Abdominal exam: Present: normal bowel sounds - Extremities Exam Extremities exam: Present: normal inspection Results - Labs CBC & BMP: 07/04/16 05:38 07/04/16 05:38 Lab Results: I have reviewed the past 24 hour labs
[2016-07-04] MEDS ORDERED: INSULIN GLARGINE 100 UNIT/ML SUBCUT SCH (14:50)
[2016-07-04] MEDS ORDERED: VANCOMYCIN INJ 1,500 MG in SODIUM CHLORIDE 0.9% 500 ML IV ONE (21:00)
[2016-07-04] MEDS: PRAVASTATIN 20 MG TABLET PO SCH (21:15)
[2016-07-04] MEDS: MAGNESIUM OXIDE 400 MG TABLET PO SCH (21:15)
[2016-07-04] MEDS: COLCHICINE 0.6 MG TABLET PO SCH (21:17)
[2016-07-05] MEDS: ENOXAPARIN 30 MG/0.3 ML SYRINGE SUBCUT SCH (02:54)
[2016-07-05] MEDS: PIPERACILLIN/TAZOBACTAM 3,375 MG in SODIUM CHLORIDE 0.9% 100 ML IV SCH (05:54)
[2016-07-05 07:33] LABS: Basophils % 0.1 % (0.0-0.8); Hematocrit 28.8 VOL% (42.0-52.0); Hemoglobin 9.1 GM/DL (14.0-18.0); Immature Granulocytes % 4.5 %; Immature Granulocytes Absolute 0.56 #; Lymphocytes # 1.4 10*3/uL (1.4-4.0); Lymphocytes % 11.2 % (21.2-54.2); Mean Corpuscular HGB Conc 31.6 GM/DL (32-36); Mean Corpuscular Hemoglobin 29 PG (27-34); Mean Corpuscular Volume 93.2 FL (87-102); Mean Platelet Volume 9.3 FL (9.6-12.0); Monocytes # 0.9 10*3/uL (0.11-0.8); Monocytes % 7.5 % (1.7-12.7); Neutrophils # 9.5 10*3/uL (1.4-7.4); Neutrophils % 76.7 % (38.7-73.9); Platelet Count 420 T/CUMM (130-400); Red Blood Count 3.09 MC/CUMM (3.8-5.5); Red Cell Distribution Width 13.9 % (9.3-17.3); White Blood Count 12.3 T/CUMM (4-12)
[2016-07-05 07:56] LABS: Hypochromasia 1+; Lymphocytes 12 % (20-55); Ovalocytes Slight; Platelet Estimate Adequate; Segmented Neutrophils 84 % (50-85); Total Cells Counted 100
[2016-07-05 08:01] LABS: Calcium 8.9 MG/DL (8.5-10.1); Osmolality,Calculated 319.7 MOS/KG (273-304); Potassium 5.4 MMOL/L (3.5-5.1)
[2016-07-05] MEDS: INSULIN REGULAR 100 UNIT/ML SUBCUT SCH ×2 (09:42→13:16)
[2016-07-05] MEDS: CLOPIDOGREL 75 MG TABLET PO SCH (09:43)
[2016-07-05] MEDS: GABAPENTIN 300 MG CAPSULE PO SCH (09:43)
[2016-07-05] MEDS: predniSONE 20 MG TABLET PO SCH (09:43)
[2016-07-05] MEDS: DILTIAZEM CD 120 MG CAPSULE PO SCH (09:43)
[2016-07-05] MEDS: PANTOPRAZOLE 40 MG TABLET PO SCH (09:44)
[2016-07-05] MEDS: FUROSEMIDE 40 MG TABLET PO SCH (09:44)
[2016-07-05] MEDS: METOPROLOL TARTRATE 25 MG TABLET PO SCH (09:44)
[2016-07-05] MEDS: COLCHICINE 0.6 MG TABLET PO SCH (09:44)
[2016-07-05] MEDS: ASPIRIN EC 81 MG TABLET PO SCH (09:44)
[2016-07-05] MEDS: ERIVEDGE 150 MG PO SCH (09:46)
--- NOTE | 2016-07-05 11:44 | Discharge Summary ---
Hospital Course - Hospital Course Hospital Course: History of present illness: Mr. 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 His Allopurinol was recently dcd due to RF and was on Colchicine. He also states a history of sharp pain in his ankles and his bilateral shoulders.He was admitted and started on broad spectrum antibiotics. Uric acid was significantly elevated. Sed rate and CRP were also elevated. Ortho was consulted. His left ankle was aspirated which was complicated by some bleeding but this has stopped with pressure dressing.His blood sugar controlled and his HbA1c was 6.9.His chemo was held and will be restarted on dc.BC, UC were negative.We couldnt restart Allopurinol due to RF but we gave steroids and Colchicine. His shoulders and ankles improved and vitals were stable and he will be going home today. The pressure dressing on the left ankle will be removed prior to dc.We will also dc on po Augmentin and steroids x7days. - Time spent with patient Time with patient DS: Greater than 30 minutes (time spent: 35mins) Diagnosis - Discharge Diagnosis (1) Polyarthralgia Status: Acute (2) New onset type 2 diabetes mellitus Status: Acute (3) Renal failure (ARF), acute on chronic Status: Acute (4) Hypertension Status: Chronic (5) Dyslipidemia Status: Chronic (6) Hx of heart artery stent Status: Acute (7) PAF (paroxysmal atrial fibrillation) Status: Chronic (8) History of skin cancer Status: Acute Discharge Plan - Discharge Data Disposition: Disch To Home/Self Care Condition at Discharge: Stable Discharge Diet: diabetic diet Activity: resume usual activities as tolerated - Discharge Medications New Acetaminophen Tab [Tylenol Tab] 650 mg PO Q4H PRN #0 tablet PRN Reason: fever, headache/body aches Colchicine [Colcrys] 0.6 mg PO BID #30 tablet HYDROcodone/ACETAMIN 7.5-325 [[place] 7.5-325] 1 tablet PO Q4H PRN #20 tablet PRN Reason: Pain Moderate (4-7) predniSONE TAB [PredniSONE] 20 mg PO DAILY #7 tablet Amoxicillin/Clav Tab [Augmentin Tab] 875 mg PO BID #14 tablet Continue Pantoprazole Tab [Protonix Tab] 40 mg PO DAILY Gabapentin Cap/Tab [Neurontin Cap/Tab] 600 mg PO BID Magnesium Oxide 400 mg PO BEDTIME Diltiazem Cd Cap [Cardizem CD] 120 mg PO DAILY Aspirin [Ecotrin] 81 mg PO DAILY Metoprolol Tartrate 12.5 mg PO BID glipiZIDE [Glipizide] 5 mg PO DAILY Furosemide 40 mg PO DAILY Insulin Detemir [Levemir] 25 unit SUBCUT AC SUPPER Pravastatin Sodium 20 mg PO BEDTIME Clopidogrel [Plavix] 75 mg PO DAILY Vismodegib [Erivedge] 150 mg PO DAILY - Follow Up or Referral - Forms/Instructions Additional Discharge Instructions: Follow with PCP in 1week. For with ortho as scheduled Exam - Constitutional Vitals: Period Temp Pulse Resp BP Sys/Villalobos Pulse Ox Last 24 Hr 96.3 F-98.4 F 54-73 16-18 130-155/50-76 93-100 General appearance: no acute distress - Head Head exam: Present: normal inspection - Eye Eye exam: Present: EOMI - Respiratory Respiratory exam: Present: clear to auscultation bilaterally - GI/Abdominal GI/Abdominal exam: Present: normal bowel sounds - Extremities Exam Extremities exam: Present: normal inspection, other (left ankle bandaged, dressings look clean) Discharge Results Procedures and tests throughout hospitalization: Pending Orders 07/02/16 11:06 Body Fluid (BacT Bottle) Stat Body Fluid Cult and Gram Stain Stat Cell Count w Diff, Syn Fluid Stat Polar Light Exam Stat 07/06/16 04:00 Vancomycin,Random IN AM Labs on day of discharge: Labs from last 24 hours 07/05/16 07/05/16 07/05/16 07:17 05:18 05:18 WBC 12.3 H RBC 3.09 L Hgb 9.1 L Hct 28.8 L MCV 93.2 MCH 29 MCHC 31.6 L RDW 13.9 Plt Count 420 H MPV 9.3 L Neut % (Auto) 76.7 H Lymph % (Auto) 11.2 L [place] % (Auto) 7.5 Eos % (Auto) 0.0 Baso % (Auto) 0.1 Neut # (Auto) 9.5 H Lymph # (Auto) 1.4 [place] # (Auto) 0.9 H Eos # (Auto) 0.0 Baso # (Auto) 0.0 Total Counted 100 Immature Gran % 4.5 Nucleated RBC % 0.0 Immature Gran # 0.56 Segmented Neutrophils 84 Lymphocytes 12 L Monocytes 4 Nucleated RBCs # 0.00 Platelet Estimate Adequate Hypochromasia 1+ Ovalocytes Slight Morphology Comment Sodium 145 Potassium 5.4 H Chloride 108 H Carbon Dioxide 27 Anion Gap 15.4 H BUN 93 H Creatinine 3.80 H GFR Calculation 19 BUN/Creatinine Ratio 24.00 H Glucose 149 H POC Glucose 155 H Calculated Osmolality 319.7 H Calcium 8.9 Random Vancomycin 07/04/16 07/04/16 07/04/16 19:38 16:09 13:37 WBC RBC Hgb Hct MCV MCH MCHC RDW Plt Count MPV Neut % (Auto) Lymph % (Auto) [place] % (Auto) Eos % (Auto) Baso % (Auto) Neut # (Auto) Lymph # (Auto) [place] # (Auto) Eos # (Auto) Baso # (Auto) Total Counted Immature Gran % Nucleated RBC % Immature Gran # Segmented Neutrophils Lymphocytes Monocytes Nucleated RBCs # Platelet Estimate Hypochromasia Ovalocytes Morphology Comment Sodium Potassium Chloride Carbon Dioxide Anion Gap BUN Creatinine GFR Calculation BUN/Creatinine Ratio Glucose POC Glucose 321 H 295 H Calculated Osmolality Calcium Random Vancomycin 16.3 07/04/16 11:35 WBC RBC Hgb Hct MCV MCH MCHC RDW Plt Count MPV Neut % (Auto) Lymph % (Auto) [place] % (Auto) Eos % (Auto) Baso % (Auto) Neut # (Auto) Lymph # (Auto) [place] # (Auto) Eos # (Auto) Baso # (Auto) Total Counted Immature Gran % Nucleated RBC % Immature Gran # Segmented Neutrophils Lymphocytes Monocytes Nucleated RBCs # Platelet Estimate Hypochromasia Ovalocytes Morphology Comment Sodium Potassium Chloride Carbon Dioxide Anion Gap BUN Creatinine GFR Calculation BUN/Creatinine Ratio Glucose POC Glucose 209 H Calculated Osmolality Calcium Random Vancomycin DS: Provider Date of admission: 07/02/16 01:59 Primary care physician: Shannan Shaikh M.D. Attending physician on admission: Alberto Rose MD Consults: 07/02/16 02:24 Consult to Pharmacy [CONS] Routine Reason for Pharmacy Consult: Dose/Manage Vancomycin 07/02/16 10:31 Consult to Physician [CONS] Routine Comment: gout? possible tap of left elbow or ankle Consulting Provider: Elian Morejon Person Notified: [email or web address] Date Notified: 07/02/16 Time Notified: 10:43 07/03/16 09:36 Consult to Physical Therapy [CONS] Routine Reason for Physical Therapy: Evaluate and Treat Consult Comment: NEEDS WALKER Discharging clinician: Desire Villaseñor MD
[2016-07-05 12:42] VITALS: BP 157/68
== END 2016-07-05 14:30 | disposition home or self-care (01) | DRG 554 ==
LOC: EDUNIT# → EDBD → N.ED 23:04 → N.EDINP 07-02 01:59 → SUATTDRO 07-02 01:59 → N.2E 07-02 02:26 → N.5E 07-02 02:26
PROVIDERS: ADMIT Internal Medicine; ATTEND Internal Medicine

== ENCOUNTER 2018-06-21 14:30 | Inpatient (IN) ==
[2018-06-21 15:43] LABS: Apearance,Urine CLEAR (Clear); Bacteria,Urine Occasional /HPF (Few); Bilirubin,Urine Negative (Negative); Blood, Urine Small mg/dL (Negative); Calcium Oxalate Crystals,Urine Occasional /HPF (Few); Glucose,Urine (UA) Negative (Negative); Ketones,Urine Negative (Negative); Mucus,Urine Occasional /LPF (Occasional); Nitrite,Urine Negative (Negative); Protein,Urine Negative; Urine Color Yellow (Yellow); Urine Specific Gravity 1.011 (1.001-1.035); Urine Urobilinogen < 2.0 EU/DL (0.2-1.0); WBC,Urine <1 /HPF (0-6)
[2018-06-21 15:58] LABS: Basophils # 0.1 10*3/uL (0.0-0.2); Basophils % 0.6 % (0.0-0.8); Eosinophils # 0.4 10*3/uL (0.0-0.87); Eosinophils % 4.4 % (0.00-10.9); Hematocrit 24.3 VOL% (42.0-52.0); Hemoglobin 7.5 GM/DL (14.0-18.0); Immature Granulocytes % 0.9 %; Immature Granulocytes Absolute 0.08 #; Lymphocytes # 1.5 10*3/uL (1.4-4.0); Lymphocytes % 17.4 % (21.2-54.2); Mean Corpuscular HGB Conc 30.9 GM/DL (32-36); Mean Corpuscular Volume 96.4 FL (87-102); Mean Platelet Volume 9.7 FL (9.6-12.0); Monocytes % 12.8 % (1.7-12.7); Neutrophils % 63.9 % (38.7-73.9); Platelet Count 239 T/CUMM (130-400); Red Blood Count 2.52 MC/CUMM (3.8-5.5); Red Cell Distribution Width 15.2 % (9.3-17.3); White Blood Count 8.8 T/CUMM (4-12)
[2018-06-21 16:11] LABS: Calcium 9.5 MG/DL (8.5-10.1); Osmolality,Calculated 299.1 MOS/KG (273-304)
[2018-06-21] MEDS ORDERED: GLUCAGON 1 MG VIAL IM PRN (16:56)
[2018-06-21] MEDS ORDERED: DEXTROSE 50% 25 GM/50 ML SYRINGE IV PRN (16:56)
[2018-06-21] MEDS ORDERED: ACETAMINOPHEN 325 MG TABLET PO PRN (17:34)
[2018-06-21] MEDS ORDERED: SODIUM CHLORIDE 0.45% 1,000 ML IV SCH (19:00)
[2018-06-21] MEDS ORDERED: SODIUM POLYSTYRENE SULFATE 15 GM/60 ML BOTTLE PO STA (19:07)
[2018-06-21] MEDS: oxyCODONE/ACETAMINOPHEN 5-325 MG TABLET PO SCH (19:58)
[2018-06-21] MEDS: SODIUM CHLORIDE 0.9% 1,000 ML IV SCH (19:59)
[2018-06-21] MEDS: METOPROLOL TARTRATE 25 MG TABLET PO SCH (20:42)
[2018-06-21] MEDS: GABAPENTIN 300 MG CAPSULE PO SCH (20:42)
[2018-06-21] MEDS: chlorproMAZINE 25 MG TABLET PO PRN (20:42)
[2018-06-21] MEDS: SIMVASTATIN 10 MG TABLET PO SCH (20:43)
[2018-06-21] MEDS: MAGNESIUM OXIDE 400 MG TABLET PO SCH (20:43)
[2018-06-21] MEDS: INSULIN LISPRO 100 UNIT/ML SUBCUT SCH (21:10)
[2018-06-22] MEDS: oxyCODONE/ACETAMINOPHEN 5-325 MG TABLET PO SCH ×2 (01:38→11:40)
[2018-06-22 05:01] LABS: Basophils % 0.5 % (0.0-0.8); Eosinophils # 0.6 10*3/uL (0.0-0.87); Eosinophils % 8.7 % (0.00-10.9); Hemoglobin 6.5 GM/DL (14.0-18.0); Immature Granulocytes % 0.6 %; Immature Granulocytes Absolute 0.04 #; Lymphocytes # 1.6 10*3/uL (1.4-4.0); Lymphocytes % 24.1 % (21.2-54.2); Mean Corpuscular HGB Conc 29.5 GM/DL (32-36); Mean Corpuscular Volume 98.2 FL (87-102); Monocytes % 11.7 % (1.7-12.7); Neutrophils % 54.4 % (38.7-73.9); Platelet Count 217 T/CUMM (130-400); Red Blood Count 2.24 MC/CUMM (3.8-5.5); Red Cell Distribution Width 15.2 % (9.3-17.3); White Blood Count 6.4 T/CUMM (4-12)
[2018-06-22] MEDS: SODIUM CHLORIDE 0.9% 1,000 ML IV SCH ×2 (05:25→22:34)
[2018-06-22 05:30] LABS: Calcium 9.1 MG/DL (8.5-10.1); Osmolality,Calculated 305.7 MOS/KG (273-304); Risk Ratio 3.1; Thyroid Stimulating Hormone 3.04 uIU/ml (0.358-3.74); VLDL CHOLESTEROL 37.6 MG/DL
[2018-06-22] MEDS: INSULIN LISPRO 100 UNIT/ML SUBCUT SCH ×4 (08:11→22:32)
[2018-06-22] MEDS ORDERED: PANTOPRAZOLE 40 MG TABLET PO SCH (09:00)
[2018-06-22] MEDS ORDERED: LISINOPRIL 5 MG TABLET PO SCH (09:00)
[2018-06-22] MEDS ORDERED: FUROSEMIDE 40 MG TABLET PO SCH (09:00)
[2018-06-22] MEDS: ONDANSETRON 4 MG/2 ML VIAL IV PRN (09:25)
[2018-06-22] MEDS: GABAPENTIN 300 MG CAPSULE PO SCH ×2 (09:26→20:58)
[2018-06-22] MEDS: chlorproMAZINE 25 MG TABLET PO PRN (09:26)
[2018-06-22] MEDS: METOPROLOL TARTRATE 25 MG TABLET PO SCH ×2 (09:26→20:57)
[2018-06-22] MEDS: DILTIAZEM CD 120 MG CAPSULE PO SCH (09:26)
[2018-06-22] MEDS: CLOPIDOGREL 75 MG TABLET PO SCH (09:26)
[2018-06-22] MEDS: MULTIVITAMIN (CENTRUM) TABLET PO SCH (09:26)
[2018-06-22] MEDS: ASPIRIN EC 81 MG TABLET PO SCH (09:26)
[2018-06-22] MEDS: SUCRALFATE 1 GM TABLET PO SCH ×3 (09:26→18:48)
[2018-06-22] MEDS ORDERED: SODIUM CHLORIDE 0.9% 1,000 ML IV PRN (11:07)
[2018-06-22 11:28] LABS: % Iron Saturation 10.3 % (18-50)
[2018-06-22 11:42] LABS: Folate 10.4 NG/ML (5.4-24.0)
[2018-06-22] MEDS: MORPHINE 4 MG/1 ML VIAL IV PRN (18:16)
[2018-06-22] MEDS: MAGNESIUM OXIDE 400 MG TABLET PO SCH (20:58)
[2018-06-22] MEDS: SIMVASTATIN 10 MG TABLET PO SCH (20:58)
[2018-06-22] MEDS: TAMSULOSIN 0.4 MG CAPSULE PO SCH (20:58)
[2018-06-22 21:03] LABS: Hematocrit 30.5 VOL% (42.0-52.0); Hemoglobin 9.2 GM/DL (14.0-18.0)
[2018-06-22] MEDS ORDERED: METOCLOPRAMIDE 10 MG/2 ML VIAL IV ONE (21:51)
[2018-06-22] MEDS: SODIUM BICARB INJ 100 MEQ in DEXTROSE 5% 1,000 ML IV SCH (21:55)
[2018-06-23 05:41] LABS: Basophils % 0.3 % (0.0-0.8); Eosinophils # 0.5 10*3/uL (0.0-0.87); Eosinophils % 5.3 % (0.00-10.9); Hematocrit 30.2 VOL% (42.0-52.0); Hemoglobin 9.4 GM/DL (14.0-18.0); Lymphocytes # 1.8 10*3/uL (1.4-4.0); Lymphocytes % 17.2 % (21.2-54.2); Mean Corpuscular HGB Conc 31.1 GM/DL (32-36); Mean Corpuscular Volume 95.6 FL (87-102); Monocytes % 11.3 % (1.7-12.7); Neutrophils % 64.9 % (38.7-73.9); Platelet Count 259 T/CUMM (130-400); Red Blood Count 3.16 MC/CUMM (3.8-5.5); Red Cell Distribution Width 15.2 % (9.3-17.3); White Blood Count 10.3 T/CUMM (4-12)
[2018-06-23 05:45] LABS: Calcium 9.2 MG/DL (8.5-10.1); Osmolality,Calculated 309.3 MOS/KG (273-304)
[2018-06-23] MEDS: INSULIN LISPRO 100 UNIT/ML SUBCUT SCH ×4 (07:53→21:26)
[2018-06-23] MEDS: ASPIRIN EC 81 MG TABLET PO SCH (09:28)
[2018-06-23] MEDS: SUCRALFATE 1 GM TABLET PO SCH ×3 (09:28→17:10)
[2018-06-23] MEDS: DILTIAZEM CD 120 MG CAPSULE PO SCH (09:28)
[2018-06-23] MEDS: METOPROLOL TARTRATE 25 MG TABLET PO SCH ×2 (09:29→21:21)
[2018-06-23] MEDS: MULTIVITAMIN (CENTRUM) TABLET PO SCH (09:29)
[2018-06-23] MEDS: TAMSULOSIN 0.4 MG CAPSULE PO SCH ×2 (09:29→21:22)
[2018-06-23] MEDS: CLOPIDOGREL 75 MG TABLET PO SCH (09:30)
[2018-06-23] MEDS: GABAPENTIN 300 MG CAPSULE PO SCH ×2 (09:30→21:22)
[2018-06-23] MEDS: chlorproMAZINE 25 MG TABLET PO PRN ×2 (09:33→21:26)
[2018-06-23] MEDS: SODIUM BICARB INJ 150 MEQ in DEXTROSE 5% 1,000 ML IV SCH ×2 (14:13→23:45)
[2018-06-23] MEDS: MAGNESIUM OXIDE 400 MG TABLET PO SCH (21:21)
[2018-06-23] MEDS: SIMVASTATIN 10 MG TABLET PO SCH (21:22)
[2018-06-23] MEDS: SODIUM BICARB INJ 100 MEQ in DEXTROSE 5% 1,000 ML IV SCH (22:29)
[2018-06-24 06:08] LABS: Albumin 2.8 G/DL (3.4-5.0); Calcium 9.2 MG/DL (8.5-10.1); Osmolality,Calculated 305.3 MOS/KG (273-304)
[2018-06-24] MEDS: INSULIN LISPRO 100 UNIT/ML SUBCUT SCH ×4 (08:43→22:40)
[2018-06-24] MEDS: SUCRALFATE 1 GM TABLET PO SCH ×3 (08:43→16:38)
[2018-06-24] MEDS: ASPIRIN EC 81 MG TABLET PO SCH (08:45)
[2018-06-24] MEDS: DILTIAZEM CD 120 MG CAPSULE PO SCH (08:45)
[2018-06-24] MEDS: MULTIVITAMIN (CENTRUM) TABLET PO SCH (08:45)
[2018-06-24] MEDS: METOPROLOL TARTRATE 25 MG TABLET PO SCH ×2 (08:46→22:40)
[2018-06-24] MEDS: TAMSULOSIN 0.4 MG CAPSULE PO SCH ×2 (08:46→22:38)
[2018-06-24] MEDS: CLOPIDOGREL 75 MG TABLET PO SCH (08:46)
[2018-06-24] MEDS: chlorproMAZINE 25 MG TABLET PO PRN ×2 (11:27→23:57)
[2018-06-24] MEDS: SODIUM BICARB INJ 150 MEQ in DEXTROSE 5% 1,000 ML IV SCH ×2 (11:34→22:40)
[2018-06-24] MEDS: GABAPENTIN 300 MG CAPSULE PO SCH (22:37)
[2018-06-24] MEDS: MAGNESIUM OXIDE 400 MG TABLET PO SCH (22:37)
[2018-06-24] MEDS: SIMVASTATIN 10 MG TABLET PO SCH (22:37)
[2018-06-24] MEDS: MORPHINE 4 MG/1 ML VIAL IV PRN (23:57)
[2018-06-25 05:32] LABS: Albumin 2.6 G/DL (3.4-5.0); Calcium 9.4 MG/DL (8.5-10.1); Osmolality,Calculated 298.4 MOS/KG (273-304)
[2018-06-25] MEDS: TAMSULOSIN 0.4 MG CAPSULE PO SCH ×2 (08:42→21:18)
[2018-06-25] MEDS: METOPROLOL TARTRATE 25 MG TABLET PO SCH ×2 (08:42→21:19)
[2018-06-25] MEDS: MULTIVITAMIN (CENTRUM) TABLET PO SCH (08:42)
[2018-06-25] MEDS: DILTIAZEM CD 120 MG CAPSULE PO SCH (08:42)
[2018-06-25] MEDS: SUCRALFATE 1 GM TABLET PO SCH ×3 (08:42→17:05)
[2018-06-25] MEDS: CLOPIDOGREL 75 MG TABLET PO SCH (08:42)
[2018-06-25] MEDS: INSULIN LISPRO 100 UNIT/ML SUBCUT SCH ×4 (08:43→21:19)
[2018-06-25] MEDS: ASPIRIN EC 81 MG TABLET PO SCH (08:43)
[2018-06-25] MEDS: ONDANSETRON 4 MG/2 ML VIAL IV PRN (08:46)
[2018-06-25] MEDS ORDERED: MAGNESIUM HYDROXIDE SUSP 30 ML UDCUP PO PRN (09:34)
[2018-06-25] MEDS ORDERED: BISACODYL 10 MG SUPP RECTAL PRN (09:35)
[2018-06-25] MEDS: DOCUSATE SODIUM 100 MG CAPSULE PO SCH ×2 (10:21→21:18)
[2018-06-25] MEDS: POLYETHYLENE GLYCOL POWDER 17 GM PACK PO SCH (10:21)
[2018-06-25] MEDS: SODIUM BICARB INJ 150 MEQ in DEXTROSE 5% 1,000 ML IV SCH (12:28)
[2018-06-25] MEDS: chlorproMAZINE 25 MG TABLET PO PRN (12:33)
[2018-06-25] MEDS ORDERED: TUBERCULIN SKIN TEST 0.1 ML SYRINGE INTRADERM ONE (15:54)
[2018-06-25] MEDS: MAGNESIUM OXIDE 400 MG TABLET PO SCH (21:18)
[2018-06-25] MEDS: GABAPENTIN 300 MG CAPSULE PO SCH (21:18)
[2018-06-25] MEDS: SIMVASTATIN 10 MG TABLET PO SCH (21:19)
[2018-06-25] MEDS ORDERED: METOCLOPRAMIDE 10 MG/2 ML VIAL IV ONE (23:57)
[2018-06-26 05:21] LABS: Basophils # 0.1 10*3/uL (0.0-0.2); Basophils % 0.6 % (0.0-0.8); Eosinophils # 0.4 10*3/uL (0.0-0.87); Eosinophils % 3.7 % (0.00-10.9); Hematocrit 29.9 VOL% (42.0-52.0); Hemoglobin 9.3 GM/DL (14.0-18.0); Immature Granulocytes Absolute 0.21 #; Lymphocytes # 1.8 10*3/uL (1.4-4.0); Lymphocytes % 17.1 % (21.2-54.2); Mean Corpuscular HGB Conc 31.1 GM/DL (32-36); Mean Corpuscular Volume 94.3 FL (87-102); Mean Platelet Volume 9.8 FL (9.6-12.0); Monocytes % 11.1 % (1.7-12.7); Neutrophils % 65.5 % (38.7-73.9); Platelet Count 297 T/CUMM (130-400); Red Blood Count 3.17 MC/CUMM (3.8-5.5); Red Cell Distribution Width 14.4 % (9.3-17.3); White Blood Count 10.7 T/CUMM (4-12)
[2018-06-26 05:50] LABS: Calcium 9.8 MG/DL (8.5-10.1); Osmolality,Calculated 292.8 MOS/KG (273-304)
[2018-06-26] MEDS: INSULIN LISPRO 100 UNIT/ML SUBCUT SCH ×2 (07:37→11:46)
[2018-06-26] MEDS: SUCRALFATE 1 GM TABLET PO SCH ×2 (07:37→11:46)
[2018-06-26] MEDS: ASPIRIN EC 81 MG TABLET PO SCH (08:40)
[2018-06-26] MEDS: METOPROLOL TARTRATE 25 MG TABLET PO SCH (08:40)
[2018-06-26] MEDS: POLYETHYLENE GLYCOL POWDER 17 GM PACK PO SCH (08:40)
[2018-06-26] MEDS: DOCUSATE SODIUM 100 MG CAPSULE PO SCH (08:41)
[2018-06-26] MEDS: DILTIAZEM CD 120 MG CAPSULE PO SCH (08:41)
[2018-06-26] MEDS: TAMSULOSIN 0.4 MG CAPSULE PO SCH (08:41)
[2018-06-26] MEDS: MULTIVITAMIN (CENTRUM) TABLET PO SCH (08:42)
[2018-06-26] MEDS: CLOPIDOGREL 75 MG TABLET PO SCH (08:43)
[2018-06-26 11:48] VITALS: BP 150/98
== END 2018-06-26 14:25 | disposition swing bed (61) | DRG 696 ==
LOC: EDUNIT# → EDBD → N.ED 14:30 → N.EDINP 16:55 → SUATTDRO 16:55 → N.3E 17:43
PROVIDERS: ADMIT Internal Medicine; ATTEND Hospitalist

== ENCOUNTER 2018-07-10 20:20 | Inpatient (IN) ==
[2018-07-10] MEDS ORDERED: ONDANSETRON 4 MG/2 ML VIAL IV STA (22:18)
[2018-07-10] MEDS ORDERED: SODIUM CHLORIDE 0.9% 1,000 ML IV STA (22:18)
[2018-07-10 22:26] LABS: Basophils # 0.1 10*3/uL (0.0-0.2); Basophils % 0.5 % (0.0-0.8); Eosinophils # 0.2 10*3/uL (0.0-0.87); Eosinophils % 1.3 % (0.00-10.9); Hematocrit 28.6 VOL% (42.0-52.0); Hemoglobin 8.4 GM/DL (14.0-18.0); Immature Granulocytes % 0.8 %; Immature Granulocytes Absolute 0.09 #; Lymphocytes # 1.9 10*3/uL (1.4-4.0); Lymphocytes % 16.2 % (21.2-54.2); Mean Corpuscular HGB Conc 29.4 GM/DL (32-36); Mean Corpuscular Volume 99.7 FL (87-102); Mean Platelet Volume 9.4 FL (9.6-12.0); Neutrophils % 75.2 % (38.7-73.9); Platelet Count 372 T/CUMM (130-400); Red Blood Count 2.87 MC/CUMM (3.8-5.5); Red Cell Distribution Width 14.8 % (9.3-17.3); White Blood Count 11.7 T/CUMM (4-12)
[2018-07-10 22:36] LABS: PT Patient Result 10.4 SECS; Partial Thromboplastin Time 25.1 SECS (0-40)
[2018-07-10 22:49] LABS: Alanine Aminotransferase 33 U/L (16-61); Albumin 3.7 G/DL (3.4-5.0); Alkaline Phosphatase 136 U/L (45-117); Aspartate Amino Transferase 25 U/L (0-37); Blood Urea Nitrogen 93 MG/DL (7-18); CKMB % 3.2 %; Calcium 10.1 MG/DL (8.5-10.1); Glucose 66 MG/DL (74-106); Total Protein 7.6 G/DL (6.4-8.3); Troponin I < 0.015 NG/ML (0.00-0.045)
[2018-07-10 23:38] LABS: Apearance,Urine Slightly Hazy (Clear); Bacteria,Urine Occasional /HPF (Few); Bilirubin,Urine Negative (Negative); Blood, Urine Negative (Negative); Glucose,Urine (UA) Negative (Negative); Hyaline Casts,Urine 11 /LPF (0-3); Ketones,Urine Negative (Negative); Mucus,Urine Occasional /LPF (Occasional); Nitrite,Urine Negative (Negative); Protein,Urine Negative; RBC,Urine <1 /HPF (0-4); Squamous Epithelial Cell,Urine Occasional /HPF (0-10); Urine Color Yellow (Yellow); Urine Specific Gravity 1.017 (1.001-1.035); Urine Urobilinogen < 2.0 EU/DL (0.2-1.0); WBC,Urine 3 /HPF (0-6)
[2018-07-11] MEDS ORDERED: ACETAMINOPHEN 325 MG TABLET PO PRN (00:25)
[2018-07-11] MEDS ORDERED: MORPHINE 4 MG/1 ML VIAL IV PRN (00:25)
[2018-07-11] MEDS ORDERED: SODIUM CHLORIDE 0.9% 1,000 ML IV SCH (00:30)
[2018-07-11] MEDS ORDERED: diphenhydrAMINE CAP 25 MG CAPSULE PO PRN (00:31)
[2018-07-11] MEDS ORDERED: NICOTINE 21 MG/24 HR PATCH TRANSDERM PRN (00:31)
[2018-07-11] MEDS ORDERED: cefTRIAXone 1,000 MG in SODIUM CHLORIDE 0.9% 100 ML IV STA (00:34)
[2018-07-11] MEDS ORDERED: DEXTROSE 50% 25 GM/50 ML SYRINGE IV ONE ×2 (01:33→08:20)
[2018-07-11] MEDS ORDERED: DEXTROSE 50% 25 GM/50 ML VIAL IV ONE (01:37)
[2018-07-11] MEDS ORDERED: SODIUM POLYSTYRENE SULFATE 15 GM/60 ML BOTTLE PO ONE (04:00)
[2018-07-11 04:54] LABS: Basophils % 0.5 % (0.0-0.8); Eosinophils # 0.2 10*3/uL (0.0-0.87); Eosinophils % 2.1 % (0.00-10.9); Hematocrit 23.5 VOL% (42.0-52.0); Hemoglobin 6.9 GM/DL (14.0-18.0); Immature Granulocytes % 0.5 %; Immature Granulocytes Absolute 0.04 #; Lymphocytes # 1.6 10*3/uL (1.4-4.0); Lymphocytes % 18.5 % (21.2-54.2); Mean Corpuscular HGB Conc 29.4 GM/DL (32-36); Mean Corpuscular Volume 99.6 FL (87-102); Mean Platelet Volume 9.7 FL (9.6-12.0); Monocytes % 7.5 % (1.7-12.7); Neutrophils % 70.9 % (38.7-73.9); Platelet Count 317 T/CUMM (130-400); Red Blood Count 2.36 MC/CUMM (3.8-5.5); Red Cell Distribution Width 14.8 % (9.3-17.3); White Blood Count 8.7 T/CUMM (4-12)
[2018-07-11] MEDS ORDERED: SODIUM CHLORIDE 0.9% 1,000 ML IV PRN (05:21)
[2018-07-11 05:26] LABS: Bilirubin,Total 0.4 MG/DL (0.2-1.0); Calcium 9.9 MG/DL (8.5-10.1); Total Protein 6.3 G/DL (6.4-8.3)
[2018-07-11] MEDS ORDERED: DEXTROSE 50% 25 GM/50 ML SYRINGE IV PRN (08:30)
[2018-07-11] MEDS ORDERED: GLUCAGON 1 MG VIAL IM PRN (08:30)
[2018-07-11] MEDS: INSULIN REGULAR 100 UNIT/ML SUBCUT SCH ×3 (12:04→20:59)
[2018-07-11] MEDS ORDERED: DEXTROSE 5% NACL 0.45% 1,000 ML IV SCH (12:30)
[2018-07-11] MEDS: cefTRIAXone 1,000 MG in SYRINGE 1 EACH IV SCH (14:32)
[2018-07-11] MEDS: SODIUM BICARB INJ 50 MEQ in DEXTROSE 5% NACL 0.45% 1,000 ML IV SCH (16:08)
[2018-07-11] MEDS: PANTOPRAZOLE 40 MG VIAL IV SCH (17:25)
[2018-07-12] MEDS: SODIUM BICARB INJ 50 MEQ in DEXTROSE 5% NACL 0.45% 1,000 ML IV SCH ×3 (00:18→17:55)
[2018-07-12] MEDS: cefTRIAXone 1,000 MG in SYRINGE 1 EACH IV SCH ×2 (00:18→12:59)
[2018-07-12] MEDS: INSULIN REGULAR 100 UNIT/ML SUBCUT SCH ×4 (09:05→21:44)
[2018-07-12] MEDS: PANTOPRAZOLE 40 MG VIAL IV SCH (09:06)
[2018-07-12 09:36] LABS: Basophils # 0.1 10*3/uL (0.0-0.2); Basophils % 0.5 % (0.0-0.8); Eosinophils # 0.7 10*3/uL (0.0-0.87); Eosinophils % 7.7 % (0.00-10.9); Hematocrit 26.2 VOL% (42.0-52.0); Immature Granulocytes % 0.2 %; Immature Granulocytes Absolute 0.02 #; Lymphocytes # 1.5 10*3/uL (1.4-4.0); Lymphocytes % 16.3 % (21.2-54.2); Mean Corpuscular HGB Conc 30.5 GM/DL (32-36); Mean Platelet Volume 9.3 FL (9.6-12.0); Monocytes % 8.7 % (1.7-12.7); Neutrophils % 66.6 % (38.7-73.9); Platelet Count 291 T/CUMM (130-400); Red Cell Distribution Width 15.9 % (9.3-17.3); White Blood Count 9.3 T/CUMM (4-12)
[2018-07-12 09:55] LABS: Calcium 9.6 MG/DL (8.5-10.1); Osmolality,Calculated 313.7 MOS/KG (273-304)
[2018-07-13] MEDS: cefTRIAXone 1,000 MG in SYRINGE 1 EACH IV SCH ×2 (00:44→13:05)
[2018-07-13] MEDS: SODIUM BICARB INJ 50 MEQ in DEXTROSE 5% NACL 0.45% 1,000 ML IV SCH (02:40)
[2018-07-13 04:38] LABS: Basophils % 0.4 % (0.0-0.8); Eosinophils # 0.5 10*3/uL (0.0-0.87); Eosinophils % 7.4 % (0.00-10.9); Hematocrit 26.7 VOL% (42.0-52.0); Immature Granulocytes % 0.4 %; Immature Granulocytes Absolute 0.03 #; Lymphocytes # 1.2 10*3/uL (1.4-4.0); Lymphocytes % 17.4 % (21.2-54.2); Mean Corpuscular Volume 97.4 FL (87-102); Mean Platelet Volume 9.5 FL (9.6-12.0); Monocytes % 10.5 % (1.7-12.7); Neutrophils % 63.9 % (38.7-73.9); Platelet Count 284 T/CUMM (130-400); Red Blood Count 2.74 MC/CUMM (3.8-5.5); Red Cell Distribution Width 15.5 % (9.3-17.3); White Blood Count 6.9 T/CUMM (4-12)
[2018-07-13 04:46] LABS: Calcium 9.5 MG/DL (8.5-10.1); Osmolality,Calculated 311.6 MOS/KG (273-304)
[2018-07-13] MEDS: PANTOPRAZOLE 40 MG VIAL IV SCH ×2 (09:05→21:50)
[2018-07-13] MEDS: INSULIN REGULAR 100 UNIT/ML SUBCUT SCH ×4 (09:07→21:51)
[2018-07-13] MEDS: SODIUM CHLORIDE 0.45% 1,000 ML IV SCH (09:52)
[2018-07-13] MEDS: SODIUM BICARBONATE 650 MG TABLET PO SCH (21:50)
[2018-07-13] MEDS: METOPROLOL TARTRATE 25 MG TABLET PO SCH (21:50)
[2018-07-14] MEDS: SODIUM CHLORIDE 0.45% 1,000 ML IV SCH ×2 (00:30→13:51)
[2018-07-14] MEDS: ONDANSETRON 4 MG/2 ML VIAL IV PRN ×2 (00:31→10:11)
[2018-07-14] MEDS: cefTRIAXone 1,000 MG in SYRINGE 1 EACH IV SCH ×2 (02:30→13:51)
[2018-07-14 04:00] LABS: Basophils % 0.4 % (0.0-0.8); Eosinophils # 0.3 10*3/uL (0.0-0.87); Eosinophils % 3.4 % (0.00-10.9); Hematocrit 26.7 VOL% (42.0-52.0); Hemoglobin 8.2 GM/DL (14.0-18.0); Immature Granulocytes % 0.8 %; Immature Granulocytes Absolute 0.07 #; Lymphocytes # 1.7 10*3/uL (1.4-4.0); Lymphocytes % 20.4 % (21.2-54.2); Mean Corpuscular HGB Conc 30.7 GM/DL (32-36); Mean Corpuscular Volume 96.4 FL (87-102); Mean Platelet Volume 9.6 FL (9.6-12.0); Monocytes % 8.5 % (1.7-12.7); Neutrophils % 66.5 % (38.7-73.9); Platelet Count 283 T/CUMM (130-400); Red Blood Count 2.77 MC/CUMM (3.8-5.5); Red Cell Distribution Width 15.1 % (9.3-17.3); White Blood Count 8.4 T/CUMM (4-12)
[2018-07-14 04:27] LABS: Calcium 9.9 MG/DL (8.5-10.1); Osmolality,Calculated 305.6 MOS/KG (273-304)
[2018-07-14] MEDS: INSULIN REGULAR 100 UNIT/ML SUBCUT SCH ×4 (07:56→22:01)
[2018-07-14] MEDS ORDERED: LIDOCAINE 100 MG/5 ML SYRINGE ONE (09:00)
[2018-07-14] MEDS ORDERED: PROPOFOL 200 MG/20 ML VIAL IV ONE (09:00)
[2018-07-14] MEDS ORDERED: amLODIPine 5 MG TABLET PO SCH (09:00)
[2018-07-14] MEDS ORDERED: ONDANSETRON 4 MG/2 ML VIAL ONE (10:12)
[2018-07-14] MEDS: METOPROLOL TARTRATE 25 MG TABLET PO SCH ×2 (10:46→22:00)
[2018-07-14] MEDS: SODIUM BICARBONATE 650 MG TABLET PO SCH ×2 (10:48→22:00)
[2018-07-14] MEDS: PANTOPRAZOLE 40 MG VIAL IV SCH (10:51)
[2018-07-14] MEDS: PANTOPRAZOLE 40 MG TABLET PO SCH (18:40)
[2018-07-14] MEDS: ATORVASTATIN 40 MG TABLET PO SCH (22:01)
[2018-07-15] MEDS: SODIUM CHLORIDE 0.45% 1,000 ML IV SCH ×2 (02:00→16:15)
[2018-07-15 04:37] LABS: Basophils % 0.5 % (0.0-0.8); Eosinophils # 0.3 10*3/uL (0.0-0.87); Eosinophils % 3.5 % (0.00-10.9); Hemoglobin 7.8 GM/DL (14.0-18.0); Immature Granulocytes % 1.2 %; Immature Granulocytes Absolute 0.09 #; Lymphocytes # 1.3 10*3/uL (1.4-4.0); Lymphocytes % 16.7 % (21.2-54.2); Mean Platelet Volume 9.7 FL (9.6-12.0); Monocytes % 9.1 % (1.7-12.7); Platelet Count 266 T/CUMM (130-400); Red Blood Count 2.68 MC/CUMM (3.8-5.5); White Blood Count 7.7 T/CUMM (4-12)
[2018-07-15 04:52] LABS: Calcium 9.9 MG/DL (8.5-10.1); Osmolality,Calculated 301.6 MOS/KG (273-304)
[2018-07-15] MEDS: PANTOPRAZOLE 40 MG TABLET PO SCH ×2 (06:58→18:58)
[2018-07-15] MEDS: INSULIN REGULAR 100 UNIT/ML SUBCUT SCH ×4 (09:04→21:28)
[2018-07-15] MEDS: amLODIPine 10 MG TABLET PO SCH (09:05)
[2018-07-15] MEDS: METOPROLOL TARTRATE 25 MG TABLET PO SCH ×2 (09:05→21:23)
[2018-07-15] MEDS: SODIUM BICARBONATE 650 MG TABLET PO SCH ×2 (09:05→21:22)
[2018-07-15] MEDS: HYOSCYAMINE 0.125 MG TABLET PO SCH ×2 (15:38→23:53)
[2018-07-15] MEDS ORDERED: MELATONIN 3 MG TABLET PO PRN (19:39)
[2018-07-15] MEDS: ATORVASTATIN 40 MG TABLET PO SCH (21:22)
[2018-07-16] MEDS: HYOSCYAMINE 0.125 MG TABLET PO SCH (06:09)
[2018-07-16] MEDS: PANTOPRAZOLE 40 MG TABLET PO SCH (06:09)
[2018-07-16] MEDS: METOPROLOL TARTRATE 25 MG TABLET PO SCH (09:35)
[2018-07-16] MEDS: amLODIPine 10 MG TABLET PO SCH (09:35)
[2018-07-16] MEDS: SODIUM BICARBONATE 650 MG TABLET PO SCH (09:35)
[2018-07-16] MEDS: INSULIN REGULAR 100 UNIT/ML SUBCUT SCH (09:35)
[2018-07-16] MEDS: SODIUM CHLORIDE 0.45% 1,000 ML IV SCH (09:37)
[2018-07-16 12:26] VITALS: BP 148/82
== END 2018-07-16 14:00 | disposition home or self-care (01) | DRG 682 ==
LOC: N.ED 20:20 → N.EDINP 20:20 → SUATTDRO 07-11 00:10 → N.TELEN 07-11 00:58 → SUATTDRO 07-11 10:16
PROVIDERS: ADMIT Hospitalist; ATTEND Internal Medicine